=== PATIENT | female | born 1975 | race Caucasian/White ===

== ENCOUNTER 2019-04-29 06:17 | Day surgery (SDC) | payer OTHER ==
[2019-04-27 12:35] VITALS: BMI 26.9
[2019-04-29] MEDS ORDERED: SUCCINYLCHOLINE CHLORIDE 200 MG/10 ML SYRINGE ONE (07:39)
[2019-04-29] MEDS ORDERED: PROPOFOL 20 ML ONE ×2 (07:39)
[2019-04-29] MEDS ORDERED: ROCURONIUM BROMIDE 50 MG/5 ML SYRINGE ONE ×2 (07:39→07:40)
[2019-04-29] MEDS ORDERED: MIDAZOLAM HCL 2 MG/2 ML SINGLE DOSE VIAL ONE (07:40)
[2019-04-29] MEDS ORDERED: fentaNYL CITRATE 250 MCG/5 ML VIAL ONE (07:40)
[2019-04-29] MEDS ORDERED: LIDOCAINE 1%-EPI 1:100,000 30 ML MDV IJ ONE ×2 (07:45→07:48)
[2019-04-29] MEDS ORDERED: EPINEPHrine/PF 1 MG/1 ML (1:1,000) AMPULE ONE (07:48)
[2019-04-29] MEDS ORDERED: BUPIVACAINE HCL/PF 0.5% (5 MG/ML) 30 ML VIAL IJ ONE ×2 (07:48→08:30)
[2019-04-29] MEDS ORDERED: LIDOCAINE HCL 2% (20ML MULTI-DOSE VIAL) NR ONE (07:50)
[2019-04-29] MEDS ORDERED: SODIUM BICARBONATE 8.4% - 100 ML ONE (07:59)
[2019-04-29] MEDS ORDERED: ceFAZolin SODIUM 1 GM VIAL IVPB ONE (08:28)
[2019-04-29] MEDS ORDERED: LIDOCAINE 1%/EPI 1:100000 (20 ML MULTI DOSE VIAL) IJ ONE (08:29)
[2019-04-29] MEDS ORDERED: EPHEDRINE SULFATE/0.9% NACL/PF 50 MG/10 ML SYRINGE NR ONE (09:12)
[2019-04-29] MEDS ORDERED: BACITRACIN 15 GM TUBE TOPICAL OINTMENT ONE (10:07)
[2019-04-29] MEDS ORDERED: ACETAMINOPHEN 325 MG TABLET (FP) PO PRN (10:20)
[2019-04-29] MEDS ORDERED: ONDANSETRON 4 MG/2 ML VIAL IVPUSH PRN (10:20)
[2019-04-29] MEDS ORDERED: LACTATED RINGERS SOLUTION 1,000 ML IV SCH (10:30)
[2019-04-29] MEDS ORDERED: ceFAZolin SODIUM 1 GM VIAL ONE (10:42)
[2019-04-29] MEDS ORDERED: DEXAMETHASONE SOD PHOSPHATE 4 MG/1 ML VIAL ONE (10:42)
[2019-04-29] MEDS ORDERED: oxyCODONE HCL 5 MG TABLET PO PRN (12:12)
[2019-04-29] MEDS ORDERED: ACETAMINOPHEN 325 MG TABLET (FP) ONE (12:16)
[2019-04-29] MEDS ORDERED: oxyCODONE HCL 5 MG TABLET ONE (12:16)
[2019-04-29 14:20] VITALS: BP 131/80; PULSE 86; TEMP 97.7
--- NOTE | 2019-05-03 18:25 | OP ---
DATE OF OPERATION: 04/29/2019 PREOPERATIVE DIAGNOSES: 1. Personal history of right breast cancer. 2. Acquired absence of bilateral breasts. POSTOPERATIVE DIAGNOSES: 1. Personal history of right breast cancer. 2. Acquired absence of bilateral breasts. PROCEDURES: Subcutaneous tissue transfer from abdomen and bilateral flanks to bilateral breasts. ATTENDING SURGEON: Padilla Sibley MD ANESTHESIA: General with LMA. ESTIMATED BLOOD LOSS: Less than 10 mL. SPECIMEN: None. DRAINS: None. COMPLICATIONS: None. CONDITION: Stable to recovery room, extubated. INDICATIONS: The patient is a 43-year-old female with a history of right breast cancer, who has previously undergone bilateral [id number] mastectomies and implant-based reconstruction. 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 The patient now presents for secondary breast reconstruction in order to correct residual bilateral breast deformities. The risks, benefits, and alternatives of the secondary breast reconstruction procedures were discussed with the patient preoperatively in detail and all questions were answered. The risks include but are not limited to bleeding, infection, pain, need for revision or further surgery, residual breast asymmetry, residual breast deformity, damage to neighboring structures including nerves, arteries, veins, and tendons. The patient understands these risks and has elected to proceed with surgery. PROCEDURE: After proper identification and marking the patient in the preoperative holding area, the patient was transported to the operating room and placed supine on the table, and noninvasive anesthesia monitors were applied. Intravenous access was established. General anesthesia was administered and an LMA was inserted without difficulty. SCD boots were applied to bilateral extremities. Intravenous antibiotics were then given. At this point, the patient's bilateral breasts as well as abdomen and flanks were prepped and draped in the usual sterile fashion. After a timeout was performed, stab incisions were made at the 12 and 6 o'clock position of the umbilicus. Standard tumescent solution was then infiltrated into the subcutaneous tissue of the abdomen and bilateral flanks. A total of 2 L of tumescent solution was infiltrated. Once adequate amount of time was given for this tumescent solution to take effect, the MicroAire system was loaded with a 5-mm cannula and hooked up to the Revolve System. The MicroAire system was then used to harvest lipoaspirate from the abdomen and bilateral flanks. It was collected into the Revolve System. Once an adequate amount of lipoaspirate had been collected, the access incisions were closed with 4-0 plain gut in simple interrupted fashion. The lipoaspirate was then processed in the Revolve System using multiple warm lactated Ringer washes. The isolated adipocytes were loaded into 10 mL syringes in preparation for subcutaneous tissue transfer. At this point, attention was turned towards bilateral breasts, where multiple stab access incisions were made with a number 15 blade. Combination of a Simmons cannula as well as a curved Metzenbaum scissors was used to divide tethering scar bands that were creating deformities in bilateral mastectomy skin flaps. Once these had been released, the adipocytes were brought up onto the field and were layered into bilateral breasts using a modified Simmons technique. A total of 140 mL were injected into the right breast and a total of 100 mL were injected into the left breast. The access incisions were closed with 4-0 plain gut in simple interrupted fashion. At this point, Mastisol and Steri-Strips were placed and the patient was then placed into a soft surgical bra, with care to ensure adequate padding of fluffs and ABD pads. The patient was also placed into an abdominal binder. At this point, the patient was slowly awakened and was extubated without incident and was transported to recovery room in stable condition. PADILLA SIBLEY M.D. [facility]/[id number]
== END 2019-04-29 13:55 | disposition home or self-care (01) ==
LOC: JASU-SURG 06:17
PROVIDERS: ATTEND Plastic Surgery
PROC: 0HRV07Z Replacement of Bilateral Breast with Autologous Tissue Substitute, Open Approach (ICD-10-PCS; principal; 2019-04-29 08:00)
DX: Z90.13 Acquired absence of bilateral breasts and nipples (principal); Z85.3 Personal history of malignant neoplasm of breast
CPT/HCPCS: 36415; 84703; 86850; 86900; 86901; 94760